=== PATIENT | female | born 1955 | race Caucasian/White ===

== ENCOUNTER 2016-12-26 11:39 | Day surgery (SDC) | payer OTHER ==
[~2016-12-26] VITALS: Ht 162.6 cm; Wt 57.8 kg
[~2016-12-26 11:39] MED LIST: DIVA500T33 PO; LEVE-5 PO
[2016-12-26 12:49] VITALS: Ht 162.6 cm; Wt 57.8 kg
[2016-12-26] MEDS ORDERED: SIMV5TAB50 PO (12:58)
[2016-12-26] MEDS ORDERED: CHOL400T10 PO (12:58)
[2016-12-26] MEDS ORDERED: CALC-516 PO (12:59)
[2016-12-26] MEDS ORDERED: FOLI-49 PO (12:59)
[2016-12-26] MEDS ORDERED: PROPOFOL 40 ML ONE (13:15)
[2016-12-26] MEDS ORDERED: LIDOCAINE 2% (SDV) 5 ML INJ ONE (13:15)
[2016-12-26 13:16] VITALS: BP 111/74; PULSE 58; RESP 13
[2016-12-26 14:00] VITALS: BP 112/68; PULSE 60; RESP 24
--- NOTE | 2016-12-26 14:09 | GILP ---
DATE OF PROCEDURE: 12/26/2016 NAME OF PROCEDURE: Esophagogastroduodenoscopy and biopsy. SURGEON: Digna Leija MD PREOPERATIVE DIAGNOSIS: Abdominal pain. POSTOPERATIVE DIAGNOSES: 1. Hiatal hernia. 2. Gastroesophageal reflux disease. 3. Gastritis with erosions. 4. Gastric mucosal biopsies were taken for Helicobacter pylori test. INDICATION FOR THE PROCEDURE: Ms. Speideh Alaniz is a 61-year-old female patient who had upper abdomin al pain, not responding to therapy. The patient was scheduled for endoscopic examination for ecu health evaluation. The procedure and possible complications were well explained to the patient, she understood and cons ented to the procedure. DESCRIPTION OF PROCEDURE: Under the influence of anesthesia, the gastroscope was carefully introduc ed into the esophagus and under direct vision, it was advanced to the stomach and through the pyloru s into the duodenal bulb and descending duodenum. FINDINGS: ESOPHAGUS: The patient had hiatal hernia and gastroesophageal reflux disease. STOMACH: She had gastritis with erosions. Gastric mucosal biopsies were taken for H. pylori test. DUODENUM: Normal. She tolerated the procedure very well and there was no complication from the procedure. At the end of the procedure, she was awake with stable vital signs and she was discharged home to the care of h family. IMPRESSION: 1. Hiatal hernia. 2. Gastroesophageal reflux disease. 3. Gastritis with erosions. 4. Gastric mucosal biopsies were taken for Helicobacter pylori test. PLAN: 1. Omeprazole 40 mg p.o. q.a.m. 2. Await H. pylori test report. Dictated By: DIGNA LEIJA MD GD/CHINO Conf#: [id number] DID#: [id number] CC: DIGNA LEIJA MD;*EndCC*
== END 2016-12-27 08:38 | disposition home or self-care (01) ==
LOC: GIL 11:39
PROVIDERS: ATTEND Internal Medicine Gastroenterology
DX: K44.9 Diaphragmatic hernia without obstruction or gangrene (principal); K21.9 Gastro-esophageal reflux disease without esophagitis; K29.60 Other gastritis without bleeding; E78.5 Hyperlipidemia, unspecified
CPT/HCPCS: 43239; 87081; Z7610